=== PATIENT | female | born 1955 | race Caucasian/White ===

== ENCOUNTER 2021-09-17 15:25 | Inpatient (IN) | payer MEDICARE, BC ==
[~2021-09-17] VITALS: Ht 172.7 cm; Wt 65.8 kg
[2021-09-17 09:00] VITALS: BP 142/68
[2021-09-17] MEDS ORDERED: APIX2.5T PO (15:33)
[2021-09-17] MEDS ORDERED: ASPI81TA31 PO (15:33)
[2021-09-17] MEDS ORDERED: IV NORMAL SALINE 1000 ML BAG IV ONE (15:45)
[2021-09-17 15:52] LABS: *BILIRUBIN,URIN 1+ (NEGATIVE); *BLOOD, URINE 1+ (NEGATIVE); *CLARITY,URINE CLEAR (CLEAR); *COLOR,URINE YELLOW (YELLOW); *KETONES,URINE 4+ (NEGATIVE); *UROBILINOGEN,URINE 0.2 E.U./dl (NORMAL); LEUKOCYTE ESTERASE ,URINE NEGATIVE (NEGATIVE); NITRITE, URINE NEGATIVE (NEGATIVE); PH,URINE 5.5 (5.0-8.0); UGLUCOSE NEGATIVE (NEGATIVE)
[2021-09-17 16:03] LABS: HEMATOCRIT 44.9 % (31.2-41.9); MEAN CORPUSCULAR HEMOGLOBIN 29.8 uug (24.7-32.8); MEAN CORPUSCULAR VOLUME 89.4 fL (75.5-95.3); PLATELET COUNT (AUTO) 261 K/uL (179-408)
--- NOTE | 2021-09-17 16:10 | NUR ---
Pt in no acute distress at this time. U/S at bedside. CT consent completed and signed by the pt.
[2021-09-17] MEDS ORDERED: SWABABLE VALVE TRANSFER SET EA MC ONE (16:31)
[2021-09-17] MEDS ORDERED: IV NORMAL SALINE 250 ML IV ONE (16:31)
[2021-09-17] MEDS ORDERED: IOHEXOL 300MG/ML 100 ML INFUS..BTL ONE (16:31)
[2021-09-17 17:44] LABS: BILIRUBIN,TOTAL 0.7 mg/dL (0.2-1.0); CREATININE 0.8 mg/dL (0.6-1.3); POTASSIUM 3.6 mmol/L (3.5-5.1); TOTAL PROTEIN, SERUM 8.2 g/dL (6.4-8.2)
[2021-09-17 18:13] LABS: BACTERIA,URINE NONE SEEN /HPF (NONE SEEN); SQUAMOUS EPITHELIAL CELL,UR FEW /HPF (NONE SEEN); URINE AMORPHOUS URATE MANY /HPF; WBC,URINE NONE SEEN /HPF (0-3)
[2021-09-17] MEDS ORDERED: PIPERACILLIN SODIUM/TAZOBACTAM 3.375 G in IV DEXTROSE 5% 50 ML IV ONE (18:15)
--- NOTE | 2021-09-17 18:30 | NUR ---
Provider spoke with pt regarding CT and lab results. Pt aware will need to draw more labs and will receive IV antibiotics once Cx are drawn. Pt in no acute distress at this time.
[2021-09-17] MEDS ORDERED: PIPERACILLIN/TAZOBACTAM/D5W 50 ML IV ONE (18:46)
--- NOTE | 2021-09-17 19:33 | NUR ---
Paged Epic panel chief compressor station engineer, waiting for Dr Patel to call back.
--- NOTE | 2021-09-17 19:52 | NUR ---
Dr Patel accepted patient to med surg floor.
--- NOTE | 2021-09-17 20:45 | NUR ---
Transport patient to 3rd floor med surg via wheelchair by nursing booth supervisor.
--- NOTE | 2021-09-17 20:50 | NUR ---
Patient arrived on the floor via wheelchair accompanied by RN. Patient is alert and oriented x4, no complain of distress. No s/sx of respiratory distress noted. Care Home Assessment done by TRACEY Petersen. Safety and precautionary measures in place. Admission care rendered. IV Zosin was provided on 09/18/21 at 0345, attached to right antecubital arm 20 raghav PIV. Patient's belongings includes one brown bag, small black wallet with credit cards and money, bra and underwear, black cell phone, a silver ring which is wearing. Will continue providing care per MD order.
[2021-09-17] MEDS ORDERED: MORPHINE SULFATE 2 MG/1 ML DISP.SYRIN IV PRN (21:15)
[2021-09-17] MEDS ORDERED: ACETAMINOPHEN 325 MG TABLET PO PRN (21:15)
[2021-09-17] MEDS ORDERED: ONDANSETRON 4 MG/2 ML VIAL IV PRN (21:15)
[2021-09-17] MEDS ORDERED: POTASSIUM CHLORIDE 20 MEQ in IV D5 1/2 NS 1000 ML 1,000 ML IV PRN (21:15)
[2021-09-17] MEDS ORDERED: PIPERACILLIN SODIUM/TAZOBACTAM 3.375 G in IV DEXTROSE 5% 50 ML IV SCH (22:00)
[2021-09-17] MEDS ORDERED: PIPERACILLIN SODIUM/TAZO 3.375 GM VIAL ONE (22:49)
[2021-09-18 00:56] VITALS: BP 115/57
[2021-09-18 04:00] VITALS: BP 120/68
[2021-09-18 04:05] VITALS: BP 115/57
[2021-09-18 06:51] LABS: MEAN CORPUSCULAR HEMOGLOBIN 29.9 uug (24.7-32.8); PLATELET COUNT (AUTO) 146 K/uL (179-408)
[2021-09-18 07:27] LABS: ALANINE AMINOTRANSFERASE 20 U/L (14-59); ALKALINE PHOSPHATASE 62 U/L (50-136); ASPARTATE AMINOTRANSFERASE 15 U/L (15-37); BILIRUBIN,TOTAL 0.7 mg/dL (0.2-1.0); CARBON DIOXIDE 24 mmol/L (21-32); CHLORIDE 103 mmol/L (98-107); CHOLESTEROL 180 mg/dL (<200); CREATININE 0.6 mg/dL (0.6-1.3); GLUCOSE 114 mg/dL (74-106); HDL CHOLESTEROL 64 mg/dL (40-60); MAGNESIUM 2.2 mg/dL (1.8-2.4); PHOSPHOROUS 2.3 mg/dL (2.5-4.9); POTASSIUM 3.6 mmol/L (3.5-5.1); TOTAL PROTEIN, SERUM 6.8 g/dL (6.4-8.2); TRIGLYCERIDES 82 MG/DL (30-150); UREA NITROGEN, BLOOD 6 mg/dL (7-18)
[2021-09-18 08:00] VITALS: BP 130/67
[2021-09-18 08:21] LABS: THYROID STIMULATING HORMONE 0.709 mIU/mL (0.358-3.740)
[2021-09-18] MEDS: APIXABAN 2.5 MG TABLET PO SCH ×2 (08:56→16:49)
[2021-09-18] MEDS ORDERED: PANTOPRAZOLE SODIUM 40 MG VIAL IV SCH (09:00)
[2021-09-18 11:16] VITALS: BP 127/67
--- NOTE | 2021-09-18 12:22 | NUR ---
Pt is a/o x 4 presenting with sinus rhythm on telemetry. Pt was placed on clear liquid diet per MD , pt tolerated well. Changed order to Soft diet for lunch. Will monitor pt. If tolerated well, plan may be to be discharged home. Comfort measures provided, call light within reach.
[2021-09-18] MEDS ORDERED: PIPERACILLIN SODIUM/TAZOBACTAM 3.375 G in IV DEXTROSE 5% 100 ML IV SCH (14:00)
[2021-09-18] MEDS ORDERED: PIPERACILLIN SODIUM/TAZOBACTAM 3.375 G in IV DEXTROSE 5% 50 ML IV SCH (14:00)
[2021-09-18 15:50] VITALS: BP 123/71
[2021-09-18] MEDS ORDERED: NEUTRA PHOS PACKET PO ONE (16:00)
[2021-09-18] MEDS ORDERED: METR500T PO (16:29)
[2021-09-18] MEDS ORDERED: ASPI-618 PO (16:29)
[2021-09-18] MEDS ORDERED: LEVO500T90 PO (16:29)
[2021-09-18] MEDS ORDERED: FAMO-132 PO (16:29)
--- NOTE | 2021-09-18 18:35 | NUR ---
Pt is being discharged home. She is a/o x 4 with no complaints of pain. Pt tolerated PO diet well during lunch and dinner. Prescriptions sent electronically to preferred pharmacy. All discharge education and materials given and at hand. All personal belongings at hand. IV/ ID removed. No signs of distress or discomfort.
== END 2021-09-18 18:35 | disposition home or self-care (01) | DRG 872 ==
LOC: ER 15:33 → MEDSURG3 20:40 → TELE3 22:10
PROVIDERS: ADMIT Internal Medicine; ATTEND Internal Medicine
DX: A41.9 Sepsis, unspecified organism (principal); K57.32 Diverticulitis of large intestine without perforation or abscess without bleeding; I48.20 Chronic atrial fibrillation, unspecified; Z79.01 Long term (current) use of anticoagulants; Z20.822 Contact with and (suspected) exposure to COVID-19; Z86.73 Personal history of transient ischemic attack (TIA), and cerebral infarction without residual deficits; R73.9 Hyperglycemia, unspecified; Z98.890 Other specified postprocedural states
CPT/HCPCS: 36415; 71045; 83735; 84100; 84443; 84484; 85025; 87040; 87086; 93005; A4663; C9113; G0378; J2543; J3480; J3490; J7030; J7050; J7060; Q9967